=== PATIENT | female | born 1995 | race Caucasian/White ===

== ENCOUNTER 2021-07-03 09:40 | Outpatient (CLI) | payer OTHER ==
--- NOTE | 2021-07-03 16:09 | MRI Report ---
PROCEDURE: Wrist RT W/O INDICATIONS: JOINT DISORDERS TECHNIQUE: Noncontrast coronal proton density fast spin echo and T2 fast spin echo with fat saturation; coronal 3-D gradient echo, axial T1 spin echo and T2 fast spin echo with fat saturation, sagittal T1 spin ech o through the wrist. COMPARISON: None. FINDINGS: Image quality: Excellent. Bones and cartilage: The carpal bones are normally aligned. No bone marrow contusions or fractures. No evidence for avascular necrosis. Overlying cartilage surfaces appear normal. Carpal ligaments: There is suggestion of low-grade sprain/partial thickness tear involving scapholuna te ligament. The lunotriquetral ligament is intact.. In the absence of intra-articular contrast, the extrinsic carpal ligaments are not well identified. On sagittal images, the pisohamate ligament elenita ears intact. Triangular fibrocartilage complex: The triangular fibrocartilage appears intact. The adjacent menis opal homolog appears normal in the absence of intra-articular contrast. The extensor carpi ulnaris te ndon is normal in location and morphology. Tendons and soft tissues: The carpal tunnel structures appear normal, including the median nerve. T he ulnar nerve appears normal within Guyon's canal. All six extensor tendon compartments demonstrate normal morphology, without pathologic tendon sheath fluid. There is a lobulated T2 hyperintense and T1 hypointense structure over dorsal aspect of distal scapholunate articulation and measures up to 7. 6 x 5.2 x 3.5 mm in size. IMPRESSION: 1. Finding is suggestive of a 7.6 x 5.2 x 3.5 mm ganglion cyst over dorsal aspect of distal scapholun ate articulation deep to the extensor tendons. 2. No marrow edema. No fracture or dislocation. 3. Suggestion of low-grade sprain/partial thickness tear involving scapholunate ligament. Rest of the wrist ligaments are intact. 4. Extensor and flexor tendons are grossly intact. Reviewed by: Thanh Olmos MD on 07/03/2021 4:07 PM PDT Approved by: Thanh Olmos MD on 07/03/2021 4:07 PM PDT Station ID: [id number]
== END 2021-07-03 09:41 | disposition home or self-care (01) ==
LOC: DI 09:40
PROVIDERS: ATTEND Orthopaedic Surgery
DX: R93.6 Abnormal findings on diagnostic imaging of limbs (principal)

== ENCOUNTER 2022-09-12 08:19 | Day surgery (SDC) | payer OTHER ==
[~2022-09-12 08:19] MED LIST: BUPIVACAINE 0.25% PF 10 ML VIAL ONE; LIDOCAINE MPF 2%-EPI 1:200000 20 ML VIAL ONE
[2022-09-12 08:34] LABS: HCG UR QUAL NEGATIVE
[2022-09-12] MEDS ORDERED: LACTATED RINGERS 1,000 ML IV ONE (08:43)
--- NOTE | 2022-09-12 09:29 | ANESTHESIA ---
Pre-Anesthesia VS, & Labs - Diagnosis fatty tumor over right eye - Procedure excision fatty tumor over right eye Vital Signs: Temp Pulse Resp BP Pulse Ox O2 Flow Rate 36.3 C L 75 18 125/74 97 09/12/22 08:32 09/12/22 08:32 09/12/22 08:32 09/12/22 08:32 09/12/22 08:32 Height: 5 ft 5 in Weight (kg): 85 kg Body Mass Index: 31.1 BMI Classification: Obese - NPO >8 hours - Is Patient ?: No Home Medications and Allergies Home Medications: Ambulatory Orders DULoxetine [Cymbalta] 40 mg PO DAILY 09/05/22 hydrOXYzine HCL [Hydroxyzine HCl] 25 mg PO QID PRN 09/05/22 DULoxetine [Cymbalta] 40 mg PO DAILY 09/05/22 hydrOXYzine HCL [Hydroxyzine HCl] 25 mg PO QID PRN 09/05/22 Allergies/Adverse Reactions: Allergies Allergy/AdvReac Type Severity Reaction Status Date / Time No Known Drug Allergies Allergy Verified 09/05/22 15:00 Anes History & Medical History - Anesthetic History Anesthesia Complications: reports: No previous complications - Medical History Cardiovascular: reports: None Pulmonary: reports: None Gastrointestinal: reports: None Urinary: reports: None Musculoskeletal: reports: None Endocrine/Autoimmune: reports: None Skin: reports: None History of Cancer?: No Exam General: Alert, Oriented x3 Dental: WNL Mouth Opening: Greater than 4 Fingerbreadths Neck Mobility: Normal Mallampati classification: II Respiratory: Lungs clear Cardiovascular: Regular rate Mental/Cognitive Status: Alert/Oriented X3 Plan Anesthesia Type: General Consent for Procedure(s) Verified and Reviewed: Yes Code Status: Attempt Resuscitation ASA classification: 2-Mild systemic disease Is this case an emergency?: No
--- NOTE | 2022-09-12 09:35 | HISTORY & PHYSICAL EXAMINATION ---
Chief Complaint - Chief Complaint Chief Complaint: lump above right eye History of Present Illness - History Obtained From Records Reviewed: yes History obtained from: pt Exam Limitations: none - History of Present Illness HPI Comment/Other: growing and now symptomatic lipoma above right eye History - Past Medical History Cardiovascular: reports: None Respiratory: reports: None Endocrine/Autoimmune: reports: None GI: reports: None : reports: None HEENT: reports: Chronic vision loss Psych: reports: Depression, Anxiety, Post traumatic stress disorder Musculoskeletal: reports: None Derm: reports: None MRSA Hx?: No Meds/Allgy - Home Medications Home Medications: Ambulatory Orders Medication Instructions Recorded Confirmed DULoxetine [Cymbalta] 40 mg PO DAILY 09/05/22 09/12/22 hydrOXYzine HCL [Hydroxyzine HCl] 25 mg PO QID PRN 09/05/22 09/12/22 - Allergies Allergies/Adverse Reactions: Allergies Allergy/AdvReac Type Severity Reaction Status Date / Time No Known Drug Allergies Allergy Verified 09/05/22 15:00 Review of Systems - Other Findings Other Findings: 10 pt ros as above otherwise unremarkable Exam - Vital Signs Vital Signs: Vital Signs x48h Temp Pulse Resp BP Pulse Ox 09/12/22 08:32 36.3 C L 75 18 125/74 97 - Physical Exam General Appearance: positive: No acute distress, Alert Eyes Bilateral: positive: PERRL ENT: positive: No signs of dehydration Neck: positive: No JVD, Trachea midline Respiratory: positive: No respiratory distress, Breath sounds nml Cardiovascular: positive: Regular rate & rhythm Abdomen: positive: No distention Skin: positive: Other (1.5 cm lipoma above right eye) Neurologic/Psychiatric: positive: Oriented x3 Conclusion/Plan - Problem List (1) Lipoma of face Conclusion/Plan: plan excision. parq held and consent obtained
[2022-09-12] MEDS ORDERED: LIDOCAINE-MPF 2% 5 ML VIAL ONE (09:44)
[2022-09-12] MEDS ORDERED: MIDAZOLAM 2 MG/2 ML VIAL ONE (09:46)
[2022-09-12] MEDS ORDERED: fentaNYL 100 MCG/2 ML VIAL ONE (09:46)
[2022-09-12] MEDS ORDERED: ePHEDrine 50 MG/ML VIAL IVP ONE (10:12)
[2022-09-12] MEDS ORDERED: ONDANSETRON 4 MG/2 ML VIAL ONE (10:12)
[2022-09-12] MEDS ORDERED: DEXAMETHASONE 4 MG/ML VIAL ONE (10:12)
[2022-09-12] MEDS ORDERED: ATROPINE ABBOJECT 1 MG/10 ML SYRINGE IVP PRN (10:36)
[2022-09-12] MEDS ORDERED: ePHEDrine 50 MG/ML VIAL IVP PRN (10:36)
[2022-09-12] MEDS ORDERED: MORPHINE 2 MG/ML CARPUJECT IVP PRN (10:36)
[2022-09-12] MEDS ORDERED: HYDROmorphone 0.5 MG/0.5 ML SYRINGE IVP PRN (10:36)
[2022-09-12] MEDS ORDERED: fentaNYL 100 MCG/2 ML VIAL IVP PRN (10:36)
[2022-09-12] MEDS ORDERED: NALOXONE 0.4 MG/ML VIAL IVP PRN (10:36)
[2022-09-12] MEDS ORDERED: ONDANSETRON 4 MG/2 ML VIAL IVP PRN ×2 (10:36→11:14)
[2022-09-12] MEDS ORDERED: LACTATED RINGERS 1,000 ML IV SCH (11:00)
[2022-09-12] MEDS ORDERED: LACTATED RINGERS 200 ML IV ONE (11:09)
[2022-09-12] MEDS ORDERED: HYDROcod/ACETAM 5/325 MG TABLET PO PRN (11:14)
[2022-09-12] MEDS ORDERED: LIDOCAINE MPF 2%-EPI 1:200000 20 ML VIAL SUBQ ONE (11:20)
[2022-09-12] MEDS ORDERED: BUPIVACAINE 0.25% PF 10 ML VIAL SUBQ ONE (11:20)
[2022-09-12] MEDS: HYDROmorphone 1 MG/ML CARPUJECT ONE ×2 (11:22→11:32)
--- NOTE | 2022-09-12 11:47 | OPERATIVE REPORT ---
Operative Report - General Procedure Date: 09/12/22 Planned Procedure: excision right forehead lipoma Pre-Op Diagnosis: right forehead 1.5 cm lipoma Procedure Performed: excision right forehead deep to muscle and fascia 1.5 cm benign cyst 1.5 cm intermediate repair forehead/ face incision Post Op Diagnosis: subfascial cyst - Procedure Note Primary Surgeon: jaleel atkins Anesthesia Technique: General LMA, Local Pathology: benign/ not sent Drain/Tube Type: Other (none) Indications: growing and symptomatic mass above right eye Findings: as above Complications: none - Other Other Information/Narrative: The patient was properly identified brought to the operating room and placed in supine position. Sequential compression devices were placed. Laryngeal mask anesthesia was induced. She was prepped and draped in a sterile fashion. I was carefully protected antibiotics were not given. She had a palpable mass thought to be lipoma just above her right eye and lateral to her eye brow. A 1.5 cm incision was made in the direction of Corby's lines. Dissection proceeded down to muscle. Fascia was carefully opened and muscle carefully spread in the direction of its fibers. Also fibers were not divided. Dissection proceeded down to a cyst. The cyst was densely scarred to the surrounding musculature. The cyst was opened. The cyst was then carefully peeled away from surrounding musculature. There was no bleeding. Cautery was not used. Muscle and fascia was carefully reapproximated with interrupted 4-0 Vicryl suture. Buried interrupted subdermal 4-0 Vicryl sutures were then placed. Epidermis was closed with a running 6-0 Prolene. Steri-Strip was placed as a dressing. She tolerated the procedure well.
[2022-09-12 12:08] VITALS: BP 121/74
--- NOTE | 2022-09-12 12:23 | ANESTHESIA POST OP EVALUATION ---
Anesthesia Post Eval - Post Anesthesia Eval Vitals: Last Vital Signs Temp 36 C L 09/12/22 12:06 Pulse 65 09/12/22 12:06 Resp 16 09/12/22 12:06 BP 121/74 09/12/22 12:06 Pulse Ox 100 09/12/22 12:06 O2 Flow Rate CV Function Including HR & BP: Stable Pain Control: Satisfactory Nausea & Vomiting: Negative Mental Status: Baseline Respiratory Status: Airway Patent Hydration Status: Satisfactory Anesthesia Complications: None
== END 2022-09-12 08:20 | disposition home or self-care (01) ==
LOC: SDS 08:19
PROVIDERS: ATTEND Surgery
DX: M79.89 Other specified soft tissue disorders (principal); E66.9 Obesity, unspecified; Z68.31 Body mass index [BMI] 31.0-31.9, adult
CPT/HCPCS: 21013; 81025; J1170; J7120